=== PATIENT | female | born 1930 ===

== ENCOUNTER 2017-05-03 12:03 | Emergency (ER) | payer MEDICARE ==
[2017-05-03 12:03] VITALS: BMI 21.2
[2017-05-03 12:25] VITALS: TEMP 98.4
--- NOTE | 2017-05-03 12:48 | ED PDOC ---
Arrival/HPI - General Chief Complaint: Trauma Time Seen by Provider: 05/03/17 12:06 Historian: Patient - History of Present Illness Narrative History of Present Illness (Text): 05/03/17 12:12 A 87 year old female presents to the emergency department complaining of central chest pain after a mechanical fall that took place at 1000 this morning. Patient reports she was at her daughter house cleaning when she just tripped and fell. Patient fell forwards and attempted to break her fall with her hands, however she notes she did her her chest against the floor and pain developed there afterwards. Patient states she has chronic back pain but denies hitting her head, loss of consciousness, neck pain, hand pain, headache, dizziness, shortness of breath or any other complaints at this time. PMD: Dr. Dobson Time/Duration: 1-3 hours Symptom Onset: Sudden Symptom Course: Unchanged Quality: Other Activities at Onset: Light Context: Home Past Medical History - Provider Review Nursing Documentation Reviewed: Yes - Infectious Disease Hx of Infectious Diseases: None - Tetanus Immunization Tetanus Immunization: Unknown - Cardiac Hx Cardiac Disorders: Yes Hx Hypertension: Yes - Pulmonary Hx Respiratory Disorders: No - Neurological Hx Neurological Disorder: No - HEENT Hx HEENT Disorder: No - Renal Hx Renal Disorder: No - Endocrine/Metabolic Hx Endocrine Disorders: No - Hematological/Oncological Hx Blood Disorders: No - Integumentary Hx Dermatological Disorder: No - Musculoskeletal/Rheumatological Hx Falls: Yes - Gastrointestinal Hx Gastrointestinal Disorders: Yes (colitis) Hx Diverticulitis: Yes - Genitourinary/Gynecological Hx Genitourinary Disorders: No Hx Incontinence: Yes (at times wears diapers) - Psychiatric Hx Anxiety: Yes Hx Substance Use: No - Surgical History Hx Appendectomy: Yes Hx Orthopedic Surgery: Yes (l knee) - Anesthesia Hx Anesthesia: Yes Hx Anesthesia Reactions: No Hx Malignant Hyperthermia: No - Suicidal Assessment Feels Threatened In Home Enviroment: No Family/Social History - Physician Review Nursing Documentation Reviewed: Yes Family/Social History: Unknown Family HX Smoking Status: Never Smoked Hx Alcohol Use: No Hx Substance Use: No Hx Substance Use Treatment: No Allergies/Home Meds Allergies/Adverse Reactions: Allergies No Known Allergies Allergy (Verified 05/03/17 12:07) Home Medications: Home Meds Medication Instructions Recorded Confirmed Calcium Carbonate [Caltrate] 600 mg PO DAILY 10/22/15 10/22/15 Citalopram Hydrobromide [Celexa] 30 mg PO DAILY 10/22/15 10/22/15 Vitamin D3 2,000 unit PO DAILY 10/22/15 10/22/15 Review of Systems - Physician Review All systems were reviewed & negative as marked: Yes - Review of Systems Constitutional: absent: Fevers, Other (head injury) Respiratory: absent: SOB Cardiovascular: Chest Pain. absent: Syncope Musculoskeletal: Back Pain (chronic). absent: Neck Pain Neurological: absent: Headache, Dizziness Physical Exam Vital Signs Reviewed: Yes Vital Signs Temp Pulse Resp BP Pulse Ox 05/03/17 14:19 88 18 136/77 98 05/03/17 12:25 98.4 F 92 H 16 141/80 94 L Temperature: Afebrile Blood Pressure: Normal Pulse: Regular Respiratory Rate: Normal Appearance: Positive for: Well-Appearing, Non-Toxic, Comfortable Pain Distress: None Mental Status: Positive for: Alert and Oriented X 3 - Systems Exam Head: Present: Atraumatic, Normocephalic Pupils: Present: PERRL Extroacular Muscles: Present: EOMI Conjunctiva: Present: Normal Mouth: Present: Moist Mucous Membranes Neck: Present: Normal Range of Motion Respiratory/Chest: Present: Clear to Auscultation, Good Air Exchange, Tender to Palpation (the the anterior chest wall, no crepitus, no ecchymosis). No: Respiratory Distress, Accessory Muscle Use Cardiovascular: Present: Regular Rate and Rhythm, Normal S1, S2. No: Murmurs Abdomen: Present: Normal Bowel Sounds. No: Tenderness, Distention, Peritoneal Signs Back: Present: Normal Inspection Upper Extremity: Present: Normal Inspection. No: Cyanosis, Edema Lower Extremity: Present: Normal Inspection. No: Edema Neurological: Present: GCS=15, CN II-XII Intact, Speech Normal Skin: Present: Warm, Dry, Normal Color. No: Rashes Psychiatric: Present: Alert, Oriented x 3, Normal Insight, Normal Concentration Medical Decision Making ED Course and Treatment: EKG: Ordered, reviewed, and independently interpreted the EKG. Rate : 92 BPM Rhythm : Sinus Rhythm Interpretation : Nonspecific T wave changes, No STEMI 05/03/17 13:[address]: Creator : Peter Richter MD COMPARISON: None available. FINDINGS: HEMORRHAGE: No intracranial hemorrhage. BRAIN: No mass effect or edema. Chronic periventricular white matter ischemic disease. VENTRICLES: Unremarkable. No hydrocephalus. CALVARIUM: Unremarkable. PARANASAL SINUSES: Unremarkable as visualized. No significant inflammatory changes. MASTOID AIR CELLS: Unremarkable as visualized. No inflammatory changes. OTHER FINDINGS: None. IMPRESSION: Normal CT of the Head. 05/03/17 13:14 Chest X-ray: Creator : Trever Jackson MD COMPARISON: 09/28/2015 FINDINGS: LUNGS: No active pulmonary disease. PLEURA: No significant pleural effusion identified, no pneumothorax apparent. CARDIOVASCULAR: Normal. OSSEOUS STRUCTURES: No significant abnormalities. VISUALIZED UPPER ABDOMEN: Moderate size hiatal hernia OTHER FINDINGS: None. IMPRESSION: No active disease. 05/03/17 15:[address] Vargas who also eval the pt in the emergency department. she agrees reasonable for dc and pt also wishes to go home. - Lab Interpretations Lab Results: 05/03/17 13:00 05/03/17 13:00 Lab Results 05/03/17 13:00: Sodium 136, Potassium 3.9, Chloride 100, Carbon Dioxide 29, Anion Gap 11, BUN 20, Creatinine 0.6, Est GFR ( Amer) > 60, Est GFR (Non- Af Amer) > 60, Random Glucose 106, Calcium 9.1, Total Bilirubin 1.6 H, AST 37, ALT 24, Alkaline Phosphatase 97, Troponin I < 0.01, Total Protein 7.1, Albumin 4.0, Globulin 3.2, Albumin/Globulin Ratio 1.3, Lipase 21 L 05/03/17 13:00: WBC 7.7 D, RBC 4.02, Hgb 12.0, Hct 36.4, MCV 90.5, MCH 29.9, MCHC 33.0, RDW 13.5, Plt Count 171, MPV 9.3, Gran % 75.1 H, Lymph % (Auto) 16.4 L, Harris % (Auto) 7.0 H, Eos % (Auto) 1.4 L, Baso % (Auto) 0.1, Gran # 5.77, Lymph # 1.3, Harris # 0.5, Eos # 0.1, Baso # 0.01 I have reviewed the lab results: Yes - RAD Interpretation Radiology Orders: 05/03/17 12:18 CHEST PORTABLE [RAD] Stat 05/03/17 12:20 HEAD W/O CONTRAST [CT] Stat - Medication Orders Current Medication Orders: Discontinued Medications Ketorolac Tromethamine (Toradol) 10 mg IVP STAT STA Stop: 05/03/17 13:11 Last Admin: 05/03/17 13:22 Dose: 10 mg Re-Assess: CHUCKY Pain Assessment Document 05/03/17 14:22 ISAIAH (Rec: 05/03/17 15:13 ISAIAH [id number]) Pain Reassessment Is this a pain reassessment? Yes Sleep Is patient sleeping during reassessment? No Presence of Pain Presence of Pain No - Scribe Statement The provider has reviewed the documentation as recorded by the Scribe Candido Brody Provider Scribe Attestation: All medical record entries made by the Scribe were at my direction and personally dictated by me. I have reviewed the chart and agree that the record accurately reflects my personal performance of the history, physical exam, medical decision making, and the department course for this patient. I have also personally directed, reviewed, and agree with the discharge instructions and disposition. Disposition/Present on Arrival - Present on Arrival Any Indicators Present on Arrival: No History of DVT/PE: No History of Uncontrolled Diabetes: No Urinary Catheter: No History of Decub. Ulcer: No History Surgical Site Infection Following: None - Disposition Have Diagnosis and Disposition been Completed?: Yes Diagnosis: Chest wall contusion Disposition: HOME/ ROUTINE Disposition Time: 15:45 Condition: STABLE Discharge Instructions (ExitCare): Chest Wall Pain (ED) Print Language: ARGENT[place] Additional Instructions: Please follow up with your doctor. Return to the ER for any worsening symptoms or for any other concerns. Prescriptions: Naproxen [Naprosyn] 500 mg PO Q12H PRN #10 tablet PRN Reason: Pain, Moderate (4-7) Referrals: Ebony Dobson DO [Primary Care Provider] - Follow up with primary
--- NOTE | 2017-05-03 13:04 | CT ---
PROCEDURE: CT HEAD WITHOUT CONTRAST. HISTORY: fall COMPARISON: None available. TECHNIQUE: Axial computed tomography images were obtained through the head/brain without intravenous contrast. Radiation dose: Total exam DLP = 722 mGy-cm. This CT exam was performed using one or more of the following dose reduction techniques: Automated exposure control, adjustment of the mA and/or kV according to patient size, and/or use of iterative reconstruction technique. FINDINGS: HEMORRHAGE: No intracranial hemorrhage. BRAIN: No mass effect or edema. Chronic periventricular white matter ischemic disease. VENTRICLES: Unremarkable. No hydrocephalus. CALVARIUM: Unremarkable. PARANASAL SINUSES: Unremarkable as visualized. No significant inflammatory changes. MASTOID AIR CELLS: Unremarkable as visualized. No inflammatory changes. OTHER FINDINGS: None. IMPRESSION: Normal CT of the Head.
--- NOTE | 2017-05-03 13:14 | RAD ---
HISTORY: cp COMPARISON: 09/28/2015 FINDINGS: LUNGS: No active pulmonary disease. PLEURA: No significant pleural effusion identified, no pneumothorax apparent. CARDIOVASCULAR: Normal. OSSEOUS STRUCTURES: No significant abnormalities. VISUALIZED UPPER ABDOMEN: Moderate size hiatal hernia OTHER FINDINGS: None. IMPRESSION: No active disease.
[2017-05-03 13:21] LABS: ADD MANUAL DIFF? NO
[2017-05-03 13:35] LABS: BASO # 0.01 K/mm3 (0.0-2.0); BASO % 0.1 % (0.0-3.0); EOS # 0.1 (0.0-0.7); EOS % 1.4 % (1.5-5.0); GRAN # 5.77 (1.4-6.5); GRAN % 75.1 % (50.0-68.0); HEMATOCRIT 36.4 % (36.0-48.0); LYMPH # 1.3 (1.2-3.4); LYMPH % 16.4 % (22.0-35.0); MEAN CELL VOLUME 90.5 fL (80.0-105.0); MEAN CORPUSCULAR HEMOGLOBIN 29.9 pg (25.0-35.0); MEAN PLATELET VOLUME 9.3 fl (7.0-11.0); MONO # 0.5 (0.1-0.6); PLATELET COUNT 171 10^3/uL (120.0-450.0); RED CELL DISTRIBUTION WIDTH 13.5 % (11.5-14.5); WHITE BLOOD COUNT 7.7 10^3/ul (4.5-11.0)
[2017-05-03 13:37] LABS: ALB/GLOB RATIO 1.3 (1.1-1.8); ALKALINE PHOSPHATASE 97 U/L (38-133); ALT/SGPT 24 U/L (7-56); AST/SGOT 37 U/L (15-39); BILIRUBIN,TOTAL 1.6 mg/dL (0.2-1.3); BLOOD UREA NITROGEN 20 mg/dL (7-21); CALCIUM 9.1 mg/dL (8.4-10.5); CARBON DIOXIDE 29 mmol/L (21-33); CHLORIDE 100 mmol/L (98-107); GFR AFRICAN-AMERICAN > 60; GLUCOSE,RANDOM 106 mg/dL (70-110); LIPASE 21 U/L (23-300); POTASSIUM 3.9 mmol/L (3.6-5.0); SODIUM 136 mmol/L (132-148); TOTAL PROTEIN 7.1 g/dL (5.8-8.3)
[2017-05-03 13:50] LABS: TROPONIN I < 0.01 ng/mL
[2017-05-03 14:20] VITALS: BP 136/77; PULSE 88; RESP 18; O2SAT 98
--- NOTE | 2017-05-03 14:47 | CARD ---
APPROVED REPORT EKG Measurement Heart [id number] PA 144P27 [id number] <Conclusion> Normal sinus rhythm Nonspecific T wave abnormality Prolonged QT Abnormal ECG
== END 2017-05-03 16:02 | disposition home or self-care (01) ==
LOC: ED 12:03
DX: S20.219A Contusion of unspecified front wall of thorax, initial encounter (principal); W01.0XXA Fall on same level from slipping, tripping and stumbling without subsequent striking against object, initial encounter; Z91.81 History of falling; Y92.009 Unspecified place in unspecified non-institutional (private) residence as the place of occurrence of the external cause
CPT/HCPCS: 70450; 71010; 80053; 83690; 84484; 85025; 93005; 96374; 99285; J1885

== ENCOUNTER 2017-05-21 22:53 | Observation (INO) | payer MEDICARE ==
[2017-05-21] MEDS ORDERED: Morphine 2 mg/ml ISec IVP STA (23:20)
--- NOTE | 2017-05-21 23:36 | ED PDOC ---
Arrival/HPI - General Chief Complaint: Trauma Time Seen by Provider: 05/21/17 22:55 Historian: Patient - History of Present Illness Narrative History of Present Illness (Text): 05/21/17 23:35 An 87 year old female presents to the emergency department after syncopal episode and fall. Patient's family reports patient hit her head and hurt left wrist. Patient was trying to berry picker something and lost balance. Patient has fractured right wrist in the past. Reports left wrist pain but denies any leg pain, chest pain or any other complaints at this time. PMD: Dr. Dobson Symptom Onset: Sudden Symptom Course: Unchanged Activities at Onset: Rest Context: Home Past Medical History - Provider Review Nursing Documentation Reviewed: Yes - Infectious Disease Hx of Infectious Diseases: None - Tetanus Immunization Tetanus Immunization: Unknown - Reproductive Menopause: Yes - Cardiac Hx Cardiac Disorders: Yes Hx Hypertension: Yes - Pulmonary Hx Respiratory Disorders: No - Neurological Hx Neurological Disorder: No - HEENT Hx HEENT Disorder: Yes Other/Comment: hearing aids b/l - Renal Hx Renal Disorder: No - Endocrine/Metabolic Hx Endocrine Disorders: No - Hematological/Oncological Hx Blood Disorders: No - Integumentary Hx Dermatological Disorder: No - Musculoskeletal/Rheumatological Hx Musculoskeletal Disorders: Yes Hx Arthritis: Yes Hx Falls: Yes - Gastrointestinal Hx Gastrointestinal Disorders: Yes (colitis) Hx Diverticulitis: Yes - Genitourinary/Gynecological Hx Genitourinary Disorders: No Hx Incontinence: Yes (at times wears diapers) - Psychiatric Hx Anxiety: Yes Hx Substance Use: No - Surgical History Hx Appendectomy: Yes Hx Orthopedic Surgery: Yes (l knee) - Anesthesia Hx Anesthesia: Yes Hx Anesthesia Reactions: No Hx Malignant Hyperthermia: No - Suicidal Assessment Feels Threatened In Home Enviroment: No Family/Social History - Physician Review Nursing Documentation Reviewed: Yes Family/Social History: No Known Family HX Smoking Status: Never Smoked Hx Alcohol Use: No Hx Substance Use: No Hx Substance Use Treatment: No Allergies/Home Meds Allergies/Adverse Reactions: Allergies No Known Allergies Allergy (Verified 05/21/17 23:01) Home Medications: Home Meds Medication Instructions Recorded Confirmed Calcium Carbonate [Caltrate] 600 mg PO DAILY 10/22/15 05/21/17 Citalopram Hydrobromide [Celexa] 30 mg PO DAILY 10/22/15 05/23/17 Vitamin D3 2,000 unit PO DAILY 10/22/15 05/21/17 Review of Systems - Physician Review All systems were reviewed & negative as marked: Yes - Review of Systems Cardiovascular: Syncope. absent: Chest Pain Musculoskeletal: Other (left wrist pain; no leg pain) Physical Exam Vital Signs Reviewed: Yes Vital Signs Temp Pulse Resp BP Pulse Ox 05/22/17 02:00 90 05/21/17 22:54 97.5 F L 84 18 143/86 92 L Temperature: Afebrile Blood Pressure: Normal Pulse: Regular Respiratory Rate: Normal Appearance: Positive for: Well-Appearing, Non-Toxic, Comfortable Pain Distress: None Mental Status: Positive for: Alert and Oriented X 3 - Systems Exam Head: Present: Atraumatic, Normocephalic Pupils: Present: PERRL Extroacular Muscles: Present: EOMI Conjunctiva: Present: Normal Mouth: Present: Moist Mucous Membranes Neck: Present: Normal Range of Motion Respiratory/Chest: Present: Clear to Auscultation, Good Air Exchange. No: Respiratory Distress, Accessory Muscle Use Cardiovascular: Present: Regular Rate and Rhythm, Normal S1, S2. No: Murmurs Abdomen: Present: Normal Bowel Sounds. No: Tenderness, Distention, Peritoneal Signs Back: Present: Normal Inspection Upper Extremity: Present: Other (tender to palpation left wrist). No: Cyanosis , Edema Lower Extremity: Present: Normal Inspection. No: Edema Neurological: Present: GCS=15, CN II-XII Intact, Speech Normal Skin: Present: Warm, Dry, Normal Color. No: Rashes Psychiatric: Present: Alert, Oriented x 3, Normal Insight, Normal Concentration Medical Decision Making ED Course and Treatment: 05/21/17 23:33 Impression: An 87 year old female after syncopal episode with left wrist pain. Differential Diagnosis included but are not limited to: r/o fracture Plan: -- EKG -- chest xray -- CT head -- Radiology of left wrist -- labs -- Morphine -- Reassess and disposition Prior Visits: Notes and results from previous visits were reviewed. Patient last reported to the emergency department on 05/03/17 for evaluation of chest pain after fall. Progress Notes: EKG: Ordered, reviewed, and independently interpreted the EKG. Rate : 82 BPM Rhythm : NSR Interpretation : Nonspecific ST segment changes Comparison : No previous EKG for comparison. 05/21/17 23: 40 chest xray: No active disease, interpreted by me. 05/21/17 23:[address] Vargas, who agrees to admit patient to tele obs. spoke with sarah will splint arm CT Head Without Intravenous Contrast FINDINGS: LIMITATIONS: Streak artifact from a hearing aid. BRAIN: Extensive areas of low density seen in the white matter bilaterally. This is a nonspecific finding, however, is most likely secondary to marked chronic small vessel ischemic changes, in a patient of this age. Diffuse, marked, age-related cortical atrophy and ventriculomegaly. No significant acute abnormality identified. No acute hemorrhage seen within the brain. No acute extra-axial fluid collections visualized. No evidence of significant mass effect within the brain. VENTRICLES: See above. BONES/JOINTS: No acute fractures or other acute bony abnormality noted. SOFT TISSUES: Soft tissue swelling in the left anterior scalp. SINUSES: Mucosal thickening in the left maxillary sinus.There is also high density material in the left maxillary sinus. This finding can be seen with inspissated secretions from longstanding sinus inflammatory disease. It can also be seen with fungal sinusitis, however, and recommend clinical correlation. Remaining visualized paranasal sinuses appear clear. MASTOID AIR CELLS: Mastoid air cells appear clear. IMPRESSION: - No evidence of acute intracranial injury or fractures. - See above for remaining findings. Dictated and Authenticated by: Jen Lindquist MD 05/22/2017 1:11 AM Eastern Time ([place] & [place]) 05/26/17 20:10 - Lab Interpretations Lab Results: 05/21/17 23:50 05/21/17 23:50 Lab Results 05/21/17 23:50: Sodium 139, Potassium 4.0, Chloride 102, Carbon Dioxide 28, Anion Gap 13, BUN 30 H, Creatinine 0.6, Est GFR ( Amer) > 60, Est GFR ( Non-Af Amer) > 60, Random Glucose 116 H, Calcium 9.2, Total Bilirubin 0.9, AST 38, ALT 28, Alkaline Phosphatase 142 H, Troponin I < 0.01, Total Protein 7.0, Albumin 3.9, Globulin 3.1, Albumin/Globulin Ratio 1.3 05/21/17 23:50: WBC 7.1, RBC 3.89, Hgb 11.5 L, Hct 35.6 L, MCV 91.5, MCH 29.6, MCHC 32.3, RDW 13.8, Plt Count 206, MPV 9.2, Gran % 65.4, Lymph % (Auto) 23.9, Jack % (Auto) 6.8 H, Eos % (Auto) 3.8, Baso % (Auto) 0.1, Gran # 4.65, Lymph # 1.7, Jack # 0.5, Eos # 0.3, Baso # 0.01 I have reviewed the lab results: Yes - RAD Interpretation Radiology Orders: 05/21/17 23:19 HEAD W/O CONTRAST [CT] Stat WRIST, LEFT 3 VIEWS [RAD] Stat 05/21/17 23:20 CHEST ONE VIEW [RAD] Stat - EKG Interpretation Interpreted by ED Physician: Yes Type: 12 lead EKG - Medication Orders Current Medication Orders: Discontinued Medications Citalopram Hydrobromide (Celexa) 30 mg PO DAILY CELENA Last Admin: 05/23/17 09:06 Dose: 30 mg Morphine Sulfate (Morphine) 2 mg IVP STAT STA Stop: 05/21/17 23:21 Last Admin: 05/21/17 23:55 Dose: 2 mg Re-Assess: [facility] Pain Assessment Document 05/22/17 00:55 OCS (Rec: 05/22/17 01:32 OCS [id number]) Pain Reassessment Is this a pain reassessment? Yes Sleep Is patient sleeping during reassessment? Yes Naproxen (Anaprox Ds) 550 mg PO Q12H PRN PRN Reason: Pain, moderate (4-7) Last Admin: 05/22/17 11:58 Dose: 550 mg Oxycodone/Acetaminophen (Percocet 5/325 Mg Tab) 1 tab PO Q4H PRN PRN Reason: Pain, moderate (4-7) Stop: 05/25/17 01:19 Last Admin: 05/23/17 03:25 Dose: 1 tab Pantoprazole Sodium (Protonix Ec Tab) 40 mg PO 0600 CELENA Last Admin: 05/23/17 06:07 Dose: Not Given Non-Admin Reason: Patient Asleep - Scribe Statement The provider has reviewed the documentation as recorded by the Sonia Cifuentes Provider Scribe Attestation: All medical record entries made by the Kathrineibruss were at my direction and personally dictated by me. I have reviewed the chart and agree that the record accurately reflects my personal performance of the history, physical exam, medical decision making, and the department course for this patient. I have also personally directed, reviewed, and agree with the discharge instructions and disposition. Disposition/Present on Arrival - Present on Arrival Any Indicators Present on Arrival: No History of DVT/PE: No History of Uncontrolled Diabetes: No Urinary Catheter: No History of Decub. Ulcer: No History Surgical Site Infection Following: None - Disposition Have Diagnosis and Disposition been Completed?: Yes Diagnosis: Wrist fracture, left Disposition: HOSPITALIZED Disposition Time: 00:55 Condition: FAIR
[2017-05-22 00:04] LABS: BASO # 0.01 K/mm3 (0.0-2.0); BASO % 0.1 % (0.0-3.0); EOS # 0.3 (0.0-0.7); EOS % 3.8 % (1.5-5.0); GRAN # 4.65 (1.4-6.5); GRAN % 65.4 % (50.0-68.0); HEMOGLOBIN 11.5 gm/dL (12.0-16.0); LYMPH # 1.7 (1.2-3.4); LYMPH % 23.9 % (22.0-35.0); MEAN CELL VOLUME 91.5 fL (80.0-105.0); MEAN CORPUSCULAR HEMOGLOBIN 29.6 pg (25.0-35.0); MEAN CORPUSCULAR HGB CONC 32.3 g/dl (31.0-37.0); MEAN PLATELET VOLUME 9.2 fl (7.0-11.0); MONO # 0.5 (0.1-0.6); MONO % 6.8 % (1.0-6.0); PLATELET COUNT 206 10^3/uL (120.0-450.0); RBC 3.89 10^6/uL (3.5-6.1); RED CELL DISTRIBUTION WIDTH 13.8 % (11.5-14.5); WHITE BLOOD COUNT 7.1 10^3/ul (4.5-11.0)
[2017-05-22 00:15] LABS: ALB/GLOB RATIO 1.3 (1.1-1.8); ALBUMIN 3.9 g/dL (3.0-4.8); ALT/SGPT 28 U/L (7-56); AST/SGOT 38 U/L (15-39); BLOOD UREA NITROGEN 30 mg/dL (7-21); CALCIUM 9.2 mg/dL (8.4-10.5); GFR AFRICAN-AMERICAN > 60; GFR NON-AFRICAN AMERICAN > 60
[2017-05-22 00:28] LABS: TROPONIN I < 0.01 ng/mL
--- NOTE | 2017-05-22 01:12 | CT ---
EXAM: CT Head Without Intravenous Contrast CLINICAL HISTORY: 87 years old, female; Injury or trauma; Fall; Initial encounter; Concussion / head injury; Additional info: Syncope TECHNIQUE: Axial computed tomography images of the head/brain without intravenous contrast. This CT exam was performed using one or more of the following dose reduction techniques: automated exposure control, adjustment of the mA and/or kV according to patient size, and/or use of iterative reconstruction technique. EXAM DATE/TIME: 05/21/2017 11:19 PM COMPARISON: Prior head CT of 05/03/2017 12:37:35 PM FINDINGS: LIMITATIONS: Streak artifact from a hearing aid. BRAIN: Extensive areas of low density seen in the white matter bilaterally. This is a nonspecific finding, however, is most likely secondary to marked chronic small vessel ischemic changes, in a patient of this age. Diffuse, marked, age-related cortical atrophy and ventriculomegaly. No significant acute abnormality identified. No acute hemorrhage seen within the brain. No acute extra-axial fluid collections visualized. No evidence of significant mass effect within the brain. VENTRICLES: See above. BONES/JOINTS: No acute fractures or other acute bony abnormality noted. SOFT TISSUES: Soft tissue swelling in the left anterior scalp. SINUSES: Mucosal thickening in the left maxillary sinus.There is also high density material in the left maxillary sinus. This finding can be seen with inspissated secretions from longstanding sinus inflammatory disease. It can also be seen with fungal sinusitis, however, and recommend clinical correlation. Remaining visualized paranasal sinuses appear clear. MASTOID AIR CELLS: Mastoid air cells appear clear. IMPRESSION: - No evidence of acute intracranial injury or fractures. - See above for remaining findings.
[2017-05-22 05:51] VITALS: BP 144/78; RESP 20; TEMP 98.4; BMI 20.2
[2017-05-22 06:06] VITALS: O2SAT 92
[2017-05-22] MEDS: Oxycodone/Acetaminophen 5/325 mg Tab PO PRN (08:03)
[2017-05-22] MEDS ORDERED: Naproxen 550 mg Tab PO PRN (09:56)
--- NOTE | 2017-05-22 11:16 | RAD ---
PROCEDURE: Left Wrist Radiographs. HISTORY: fall COMPARISON: None. FINDINGS: BONES: Fractures of the distal left radius and ulna. Dorsal angulation of distal major fracture fragments identified. The radial fracture has an intra-articular component. The ulnar fracture does not. JOINTS: Incompletely visualized osteoarthritic changes involving carpal bones. Preserve radial carpal anatomic alignment. SOFT TISSUES: Normal. OTHER FINDINGS: None. IMPRESSION: Acute fractures distal left radius and ulna.
--- NOTE | 2017-05-22 11:17 | RAD ---
PROCEDURE: CHEST RADIOGRAPH, 1 VIEW HISTORY: pain COMPARISON: 05/03/2017. FINDINGS: LUNGS: No discrete infiltrates. Pulmonary vascular congestion noted. PLEURA: No pneumothorax or pleural fluid seen. CARDIOVASCULAR: Cardiomegaly OSSEOUS STRUCTURES: No significant abnormalities. VISUALIZED UPPER ABDOMEN: Normal. OTHER FINDINGS: Large hiatal hernia. IMPRESSION: No significant interval change compared to the prior examination(s).
--- NOTE | 2017-05-22 11:24 | RAD ---
PROCEDURE: Left Wrist Radiographs. HISTORY: post reduction lt wrist ex COMPARISON: None. FINDINGS: BONES: Improved anatomic alignment of major fracture fragments of the distal left radius and ulna. JOINTS: Normal. No dislocation. SOFT TISSUES: Normal. OTHER FINDINGS: None. IMPRESSION: Status post close reduction. Limitations of the current study: Detail obscured by overlying fiberglass cast.
[2017-05-22 11:58] LABS: HDL CHOLESTEROL 48 mg/dL (29-60)
[2017-05-22 12:09] LABS: LDL CHOLESTEROL 153 mg/dL (0-129)
[2017-05-22 12:17] LABS: FREE T4 1.01 ng/dL (0.78-2.19)
--- NOTE | 2017-05-22 20:15 | CARD ---
APPROVED REPORT EKG Measurement Heart [id number] NM 130P50 [id number] <Conclusion> Normal sinus rhythm Nonspecific T wave abnormality Abnormal ECG
[2017-05-23] MEDS: Oxycodone/Acetaminophen 5/325 mg Tab PO PRN (03:25)
[2017-05-23 05:39] VITALS: PULSE 66
[2017-05-23] MEDS ORDERED: Pantoprazole 40 mg EC Tab PO SCH (06:00)
--- NOTE | 2017-05-23 10:17 | US ---
PROCEDURE: Bilateral carotid artery duplex ultrasound HISTORY: Carotid stenosis PHYSICIAN(S): Jeff Cruz MD. TECHNIQUE: Duplex sonography and color-flow Doppler were used to evaluate the carotid bifurcations and limited segments of the vertebral arteries bilaterally. The exam is limited by tortuous vessels. FINDINGS: There is mild smooth heterogeneous plaque noted at the carotid bifurcations bilaterally. The peak systolic velocity in the proximal right internal carotid artery is 67 cm/sec. This corresponds to a 20 to 39% proximal right ICA stenosis. Normal systolic velocities are noted in the proximal right external carotid artery. There is antegrade flow in the right vertebral artery. The peak systolic velocity in the proximal left internal carotid artery is 75 cm/sec. This corresponds to a 20 to 39% proximal left ICA stenosis. Normal systolic velocities are noted in the proximal left external carotid artery. There is antegrade flow in the left vertebral artery. IMPRESSION: 1. Bilateral 20-39% proximal ICA stenoses. 2. Antegrade flow in both vertebral arteries.
== END 2017-05-23 10:38 | disposition home or self-care (01) ==
LOC: ED 22:53 → ERH 05-22 00:52 → 2RNO 05-22 03:29
PROVIDERS: ADMIT Internal Medicine; ATTEND Internal Medicine
DX: S52.502A Unspecified fracture of the lower end of left radius, initial encounter for closed fracture (principal); W19.XXXA Unspecified fall, initial encounter; Y93.9 Activity, unspecified; Y92.009 Unspecified place in unspecified non-institutional (private) residence as the place of occurrence of the external cause; I10 Essential (primary) hypertension; Z79.899 Other long term (current) drug therapy; Z90.49 Acquired absence of other specified parts of digestive tract; M19.90 Unspecified osteoarthritis, unspecified site; K52.9 Noninfective gastroenteritis and colitis, unspecified; Z87.19 Personal history of other diseases of the digestive system; R32 Unspecified urinary incontinence; F41.9 Anxiety disorder, unspecified; R40.2412 Glasgow coma scale score 13-15, at arrival to emergency department; M81.0 Age-related osteoporosis without current pathological fracture; S00.12XA Contusion of left eyelid and periocular area, initial encounter
CPT/HCPCS: 25605; 36415; 70450; 71010; 73110; 80053; 80061; 84439; 84443; 84484; 85025; 93005; 93880; 96374; 99285; G0378; J2270